=== PATIENT | female | born 1940 | race Caucasian/White ===

== ENCOUNTER 2019-05-27 10:58 | Emergency (ER) | payer OTHER ==
[~2019-05-27] VITALS: Ht 170.2 cm; Wt 86.2 kg
[~2019-05-27 10:58] MED LIST: NAPR220C
[2019-05-27 16:45] VITALS: BP 164/84
== END 2019-05-27 16:48 | disposition home or self-care (01) ==
LOC: ER 10:58
DX: R07.89 Other chest pain (principal); Z90.49 Acquired absence of other specified parts of digestive tract; Z87.891 Personal history of nicotine dependence; Z79.899 Other long term (current) drug therapy; Z88.8 Allergy status to other drugs, medicaments and biological substances; V49.9XXA Car occupant (driver) (passenger) injured in unspecified traffic accident, initial encounter; Y93.89 Activity, other specified; Y92.89 Other specified places as the place of occurrence of the external cause; Y99.8 Other external cause status
CPT/HCPCS: 71046; 93005

== ENCOUNTER 2020-11-16 19:44 | Inpatient (IN) | payer OTHER ==
[~2020-11-16] VITALS: Ht 162.6 cm; Wt 87.1 kg
[2020-11-16] MEDS ORDERED: ONDANSETRON HCL 4 MG/2 ML VIAL IV ONE (21:15)
[2020-11-16] MEDS ORDERED: SODIUM CHLORIDE 0.9% 500 ML IV ONE (21:15)
[2020-11-16] MEDS ORDERED: DexAMETHasone SOD PHOS 10MG/1ML VIAL INJ IV ONE (21:30)
[2020-11-16] MEDS ORDERED: ALBUTEROL SULF 2.5 MG/0.5ML(0.5%) NEB SOLN NEB ONE (21:30)
[2020-11-16 22:15] LABS: Basophils # (auto) 0 10 ^3/uL (0-0.2); Basophils % (auto) 1.1 % (0.0-2.0); Eosinophils # (auto) 0 10 ^3/uL (0-0.8); Eosinophils % (auto) 0.1 % (0.0-7.0); Hematocrit 41.9 % (36.0-46.0); Hemoglobin 14.1 g/dL (12.2-16.2); Lymphocytes # (auto) 0.5 10 ^3/uL (0.4-5.4); Lymphocytes % (auto) 11.8 % (10.0-50.0); Mean Corpuscular Hemoglobin 29.1 pg (28.0-32.0); Mean Corpuscular Hgb Conc. 33.7 g/dL (32.0-36.0); Mean Corpuscular Volume 86.2 fL (80.0-100.0); Monocytes # (auto) 0.5 10 ^3/uL (0-1.3); Monocytes % (auto) 10.7 % (0.0-12.0); Neutrophils # (auto) 3.3 10 ^3/uL (1.6-8.6); Neutrophils % (auto) 76.3 % (37.0-80.0); Nucleated Red Blood Cells % 0.1 %; Red Blood Cells 4.86 10^6/uL (4.0-5.20); Red Cell Distribution Width 14.6 % (11.8-14.3); White Blood Cell 4.3 10^3/uL (4.4-10.8)
[2020-11-16 22:35] LABS: Anion Gap 7 (5-15); Blood Urea Nitrogen 23 mg/dL (7-18); Calcium 8.4 mg/dL (8.5-10.1); Carbon Dioxide 26 mmol/L (21-32); Chloride 103 mmol/L (98-107); Glucose 120 mg/dL (74-106); Magnesium 2.3 mg/dL (1.6-2.6); Potassium 3.7 mmol/L (3.5-5.1); Sodium 136 mmol/L (136-145)
[2020-11-16 22:37] LABS: Lactic Acid w/Reflex 2.2 mmol/L (0.4-2.0)
[2020-11-16 22:43] LABS: Alanine Aminotransferase 76 U/L (13-56); Alkaline Phosphatase 61 U/L (45-117); Aspartate Aminotransferase 67 U/L (15-37); BUN/Creatinine Ratio 13.6; Bilirubin, Total 0.6 mg/dL (0.2-1.0); CRP High Sensitivity 8.96 mg/dL (< 0.3); GFR African American 38 mL/min; GFR Non-African American 31 mL/min; Total Protein 7.9 g/dL (6.4-8.2)
[2020-11-17] MEDS ORDERED: cefTRIAXone 1GM/50ML D5W 50 ML IV ONE
[2020-11-17] MEDS ORDERED: AZITHROMYCIN 500MG/ 250ML 250 ML IV ONE
[2020-11-17] MEDS ORDERED: ACETAMINOPHEN 500 MG TAB PO PRN (01:00)
[2020-11-17] MEDS ORDERED: ALBUTEROL SULF HFA 90MCG INH 200DOSE IN PRN (01:00)
[2020-11-17] MEDS ORDERED: NITROGLYCERIN 0.4 MG SL TAB SL PRN (01:00)
[2020-11-17] MEDS ORDERED: MORPHINE SULFATE INJECTION 2 MG/ML SYRG IV PRN (01:00)
[2020-11-17 09:00] VITALS: BP 131/79
[2020-11-17] MEDS ORDERED: ALBU108A5 INH (09:20)
[2020-11-17] MEDS ORDERED: ATOR20TA50 PO (09:20)
[2020-11-17] MEDS ORDERED: PANTOPRAZOLE 40 MG TAB PO SCH (10:00)
[2020-11-17] MEDS: CHOLECALCIFEROL (VITD3) 2,000 UNIT CAP/TAB PO SCH (10:00)
[2020-11-17] MEDS ORDERED: AZITHROMYCIN 500MG/ 250ML 250 ML IV SCH (10:00)
[2020-11-17] MEDS: ASCORBIC ACID 1,000 MG TAB PO SCH (10:00)
[2020-11-17] MEDS ORDERED: REMDESIVIR PER PHARMACY 0 ML IV SCH (10:00)
[2020-11-17] MEDS: DexAMETHasone SOD PHOS 10MG/1ML VIAL INJ IV SCH (10:00)
[2020-11-17] MEDS: ZINC SULFATE 220mg CAP or TAB PO SCH (10:00)
[2020-11-17] MEDS: ENOXAPARIN SOD 40 MG/0.4 ML SYRINGE SC SCH (10:00)
[2020-11-17] MEDS: SODIUM CHLORIDE 0.9% 1,000 ML IV SCH (10:15)
[2020-11-17] MEDS: ALBUTEROL SULF HFA 90MCG INH 200DOSE IN SCH ×2 (11:42→20:41)
[2020-11-17] MEDS: BUDESONIDE (INHALATION) 180 MCG IH IN SCH ×2 (11:42→20:41)
[2020-11-17 12:12] LABS: Hemoglobin 13.1 g/dL (12.2-16.2); Mean Corpuscular Hemoglobin 28.8 pg (28.0-32.0); Mean Corpuscular Hgb Conc. 33.6 g/dL (32.0-36.0); Mean Corpuscular Volume 85.9 fL (80.0-100.0); Red Blood Cells 4.54 10^6/uL (4.0-5.20); Red Cell Distribution Width 14.5 % (11.8-14.3); White Blood Cell 3.6 10^3/uL (4.4-10.8)
[2020-11-17 12:25] LABS: Basophils % (manual) 0 (0.0-2.0); Blast Cells 0; Eosinophils % (manual) 0 (0-7); Metamyelocytes % 0; Myelocytes % 0; Promyelocytes % 0; Reactive Lymphocytes 0
[2020-11-17 12:27] LABS: Albumin 2.5 g/dL (3.4-5.0); Calcium 8.1 mg/dL (8.5-10.1); Potassium 3.9 mmol/L (3.5-5.1)
[2020-11-17 12:33] LABS: BUN/Creatinine Ratio 14.7; Bilirubin, Total 0.3 mg/dL (0.2-1.0); Total Protein 7.1 g/dL (6.4-8.2)
[2020-11-17 12:40] LABS: Band Neutrophils % (manual) 2; Lymphocytes % (manual) 8 (10.0-50.0); Monocytes % (manual) 4 (0-12)
[2020-11-17 12:57] LABS: Lactic Acid w/Reflex 2.3 mmol/L (0.4-2.0)
[2020-11-17 13:00] VITALS: BP 130/73
[2020-11-17] MEDS ORDERED: REMDESIVIR 200 MG in NS 210ml LOADING DOSE ADULT IV ONE (15:00)
[2020-11-17 17:00] VITALS: BP 133/74
[2020-11-17] MEDS ORDERED: cefTRIAXone 1GM/50ML D5W 50 ML IV SCH (21:00)
[2020-11-17] MEDS: ATORVASTATIN 20 MG TAB PO SCH (21:05)
[2020-11-17 22:00] VITALS: BP 140/63
[2020-11-17 22:16] LABS: Urine Bacteria FEW /hpf (None Seen); Urine Blood Negative /uL (Negative); Urine Mucus FEW (None Seen); Urine Specific Gravity 1.019 (1.001-1.035); Urine WBC 2 /hpf (0 - 5)
[2020-11-17 22:31] LABS: Protein, Urine 89.3 mg/dL (0.0-11.9)
[2020-11-18] MEDS: SODIUM CHLORIDE 0.9% 1,000 ML IV SCH (03:55)
[2020-11-18 05:00] VITALS: BP 134/77
[2020-11-18 06:35] LABS: Basophils # (auto) 0 10 ^3/uL (0-0.2); Basophils % (auto) 0.1 % (0.0-2.0); Eosinophils # (auto) 0 10 ^3/uL (0-0.8); Hematocrit 37.4 % (36.0-46.0); Hemoglobin 12.7 g/dL (12.2-16.2); Lymphocytes # (auto) 0.6 10 ^3/uL (0.4-5.4); Lymphocytes % (auto) 6.1 % (10.0-50.0); Mean Corpuscular Hemoglobin 28.9 pg (28.0-32.0); Mean Corpuscular Hgb Conc. 33.8 g/dL (32.0-36.0); Mean Corpuscular Volume 85.3 fL (80.0-100.0); Monocytes # (auto) 0.7 10 ^3/uL (0-1.3); Monocytes % (auto) 7.7 % (0.0-12.0); Neutrophils # (auto) 7.9 10 ^3/uL (1.6-8.6); Neutrophils % (auto) 86.1 % (37.0-80.0); Red Blood Cells 4.39 10^6/uL (4.0-5.20); Red Cell Distribution Width 14.6 % (11.8-14.3); White Blood Cell 9.1 10^3/uL (4.4-10.8)
[2020-11-18 06:57] LABS: Albumin 2.3 g/dL (3.4-5.0); Calcium 7.9 mg/dL (8.5-10.1)
[2020-11-18 07:00] LABS: BUN/Creatinine Ratio 20.6; Bilirubin, Total 0.4 mg/dL (0.2-1.0); Total Protein 6.6 g/dL (6.4-8.2)
[2020-11-18] MEDS: DexAMETHasone SOD PHOS 10MG/1ML VIAL INJ IV SCH (08:43)
[2020-11-18] MEDS: ZINC SULFATE 220mg CAP or TAB PO SCH (08:44)
[2020-11-18] MEDS: ENOXAPARIN SOD 40 MG/0.4 ML SYRINGE SC SCH (08:44)
[2020-11-18] MEDS: CHOLECALCIFEROL (VITD3) 2,000 UNIT CAP/TAB PO SCH (08:44)
[2020-11-18] MEDS: ASCORBIC ACID 1,000 MG TAB PO SCH (08:44)
[2020-11-18 09:00] VITALS: BP 147/87
[2020-11-18] MEDS ORDERED: POTASSIUM PHOSPHATE 44 MEQ in D5W 5% 250 ML IV ONE (10:30)
[2020-11-18] MEDS: ONDANSETRON HCL 4 MG/2 ML VIAL IV PRN (10:44)
[2020-11-18] MEDS: ALBUTEROL SULF HFA 90MCG INH 200DOSE IN SCH ×3 (11:22→21:22)
[2020-11-18] MEDS: BUDESONIDE (INHALATION) 180 MCG IH IN SCH ×2 (11:22→21:22)
[2020-11-18] MEDS ORDERED: levoFLOXacin 500MG 100 ML IV SCH (12:00)
[2020-11-18 13:00] VITALS: BP 131/70
[2020-11-18] MEDS ORDERED: REMDESIVIR 100mg 100 MG in SODIUM CHL 0.9% 230 ML IV SCH (15:00)
[2020-11-18] MEDS ORDERED: REMDESIVIR PER PHARMACY 0 ML IV SCH (15:30)
[2020-11-18] MEDS ORDERED: REMDESIVIR 200 MG in NS 210ml LOADING DOSE ADULT IV ONE (16:30)
[2020-11-18 17:00] VITALS: BP 113/61
[2020-11-18] MEDS: ATORVASTATIN 20 MG TAB PO SCH (21:45)
[2020-11-18 22:00] VITALS: BP 136/92
[2020-11-19 05:00] VITALS: BP 133/76
[2020-11-19 06:39] LABS: Basophils # (auto) 0 10 ^3/uL (0-0.2); Basophils % (auto) 0.1 % (0.0-2.0); Eosinophils # (auto) 0 10 ^3/uL (0-0.8); Hemoglobin 12.5 g/dL (12.2-16.2); Lymphocytes # (auto) 0.4 10 ^3/uL (0.4-5.4); Lymphocytes % (auto) 3.9 % (10.0-50.0); Mean Corpuscular Hemoglobin 28.9 pg (28.0-32.0); Mean Corpuscular Hgb Conc. 33.8 g/dL (32.0-36.0); Mean Corpuscular Volume 85.5 fL (80.0-100.0); Monocytes # (auto) 0.7 10 ^3/uL (0-1.3); Monocytes % (auto) 6.7 % (0.0-12.0); Neutrophils # (auto) 9.4 10 ^3/uL (1.6-8.6); Neutrophils % (auto) 89.3 % (37.0-80.0); Red Blood Cells 4.32 10^6/uL (4.0-5.20); Red Cell Distribution Width 14.5 % (11.8-14.3); White Blood Cell 10.5 10^3/uL (4.4-10.8)
[2020-11-19 07:23] LABS: Potassium 4.4 mmol/L (3.5-5.1)
[2020-11-19 07:40] LABS: Albumin 2.1 g/dL (3.4-5.0); Bilirubin, Total 0.5 mg/dL (0.2-1.0); Calcium 7.7 mg/dL (8.5-10.1); Total Protein 6.6 g/dL (6.4-8.2)
[2020-11-19 09:00] VITALS: BP 139/85
[2020-11-19] MEDS: ASCORBIC ACID 1,000 MG TAB PO SCH (09:45)
[2020-11-19] MEDS: DexAMETHasone SOD PHOS 10MG/1ML VIAL INJ IV SCH (09:45)
[2020-11-19] MEDS: ZINC SULFATE 220mg CAP or TAB PO SCH (09:45)
[2020-11-19] MEDS: CHOLECALCIFEROL (VITD3) 2,000 UNIT CAP/TAB PO SCH (09:46)
[2020-11-19] MEDS: ENOXAPARIN SOD 40 MG/0.4 ML SYRINGE SC SCH (09:46)
[2020-11-19] MEDS: BUDESONIDE (INHALATION) 180 MCG IH IN SCH ×2 (09:52→21:56)
[2020-11-19] MEDS: ALBUTEROL SULF HFA 90MCG INH 200DOSE IN SCH ×3 (09:52→21:56)
[2020-11-19 13:00] VITALS: BP 124/75
[2020-11-19 14:45] VITALS: BP 139/85
[2020-11-19] MEDS: REMDESIVIR 100mg 100 MG in SODIUM CHL 0.9% 230 ML IV SCH (16:33)
[2020-11-19 17:00] VITALS: BP 149/89
[2020-11-19] MEDS ORDERED: SODIUM PHOSPHATES 20 MEQ in SODIUM CHL 0.9% 100 ML IV ONE (18:00)
[2020-11-19 22:00] VITALS: BP 143/83
[2020-11-19] MEDS: ATORVASTATIN 20 MG TAB PO SCH (22:37)
[2020-11-20 05:00] VITALS: BP 162/89
[2020-11-20 06:37] LABS: Basophils # (auto) 0 10 ^3/uL (0-0.2); Basophils % (auto) 0.1 % (0.0-2.0); Eosinophils # (auto) 0 10 ^3/uL (0-0.8); Hematocrit 37.9 % (36.0-46.0); Hemoglobin 12.8 g/dL (12.2-16.2); Lymphocytes # (auto) 0.3 10 ^3/uL (0.4-5.4); Lymphocytes % (auto) 4.6 % (10.0-50.0); Mean Corpuscular Hemoglobin 28.8 pg (28.0-32.0); Mean Corpuscular Hgb Conc. 33.8 g/dL (32.0-36.0); Mean Corpuscular Volume 85.2 fL (80.0-100.0); Monocytes # (auto) 0.6 10 ^3/uL (0-1.3); Monocytes % (auto) 8.3 % (0.0-12.0); Neutrophils # (auto) 6.5 10 ^3/uL (1.6-8.6); Red Blood Cells 4.45 10^6/uL (4.0-5.20); Red Cell Distribution Width 14.6 % (11.8-14.3); White Blood Cell 7.4 10^3/uL (4.4-10.8)
[2020-11-20 07:16] LABS: Potassium 4.2 mmol/L (3.5-5.1)
[2020-11-20 07:31] LABS: Albumin 2.1 g/dL (3.4-5.0); BUN/Creatinine Ratio 32.4; Bilirubin, Total 0.6 mg/dL (0.2-1.0); CRP High Sensitivity 9.67 mg/dL (< 0.3); Calcium 8.1 mg/dL (8.5-10.1); Phosphorus 2.4 mg/dL (2.5-4.90); Total Protein 6.3 g/dL (6.4-8.2)
[2020-11-20] MEDS: ALBUTEROL SULF HFA 90MCG INH 200DOSE IN SCH ×3 (07:53→18:47)
[2020-11-20] MEDS: BUDESONIDE (INHALATION) 180 MCG IH IN SCH ×2 (07:53→18:46)
[2020-11-20] MEDS: ASCORBIC ACID 1,000 MG TAB PO SCH (09:55)
[2020-11-20] MEDS: CHOLECALCIFEROL (VITD3) 2,000 UNIT CAP/TAB PO SCH (09:55)
[2020-11-20] MEDS: ENOXAPARIN SOD 40 MG/0.4 ML SYRINGE SC SCH (09:55)
[2020-11-20] MEDS: ZINC SULFATE 220mg CAP or TAB PO SCH (09:55)
[2020-11-20] MEDS: DexAMETHasone SOD PHOS 10MG/1ML VIAL INJ IV SCH (09:55)
[2020-11-20 13:00] VITALS: BP 150/91
[2020-11-20] MEDS ORDERED: LOPERAMIDE HCL 2 MG CAP PO ONE (15:30)
[2020-11-20] MEDS ORDERED: LOPERAMIDE HCL 2 MG CAP PO PRN (15:30)
[2020-11-20] MEDS: REMDESIVIR 100mg 100 MG in SODIUM CHL 0.9% 230 ML IV SCH (16:28)
[2020-11-20 16:48] VITALS: BP 152/87
[2020-11-20 22:00] VITALS: BP 143/88
[2020-11-20] MEDS: ATORVASTATIN 20 MG TAB PO SCH (22:00)
[2020-11-21 05:00] VITALS: BP 143/73
[2020-11-21 05:08] LABS: Basophils # (auto) 0 10 ^3/uL (0-0.2); Basophils % (auto) 0.1 % (0.0-2.0); Eosinophils # (auto) 0 10 ^3/uL (0-0.8); Hematocrit 37.7 % (36.0-46.0); Hemoglobin 12.3 g/dL (12.2-16.2); Lymphocytes # (auto) 0.3 10 ^3/uL (0.4-5.4); Lymphocytes % (auto) 3.9 % (10.0-50.0); Mean Corpuscular Hemoglobin 28.2 pg (28.0-32.0); Mean Corpuscular Hgb Conc. 32.7 g/dL (32.0-36.0); Mean Corpuscular Volume 86.4 fL (80.0-100.0); Monocytes # (auto) 0.7 10 ^3/uL (0-1.3); Monocytes % (auto) 9.7 % (0.0-12.0); Neutrophils # (auto) 6.5 10 ^3/uL (1.6-8.6); Neutrophils % (auto) 86.3 % (37.0-80.0); Red Blood Cells 4.37 10^6/uL (4.0-5.20); Red Cell Distribution Width 14.8 % (11.8-14.3); White Blood Cell 7.6 10^3/uL (4.4-10.8)
[2020-11-21 05:28] LABS: Potassium 4.3 mmol/L (3.5-5.1)
[2020-11-21 05:41] LABS: Bilirubin, Total 0.7 mg/dL (0.2-1.0); Total Protein 5.8 g/dL (6.4-8.2)
[2020-11-21] MEDS: BUDESONIDE (INHALATION) 180 MCG IH IN SCH ×2 (06:10→22:10)
[2020-11-21] MEDS: ALBUTEROL SULF HFA 90MCG INH 200DOSE IN SCH ×3 (06:10→22:10)
[2020-11-21 08:00] VITALS: BP 147/92
[2020-11-21] MEDS: DexAMETHasone SOD PHOS 10MG/1ML VIAL INJ IV SCH (10:18)
[2020-11-21] MEDS: ZINC SULFATE 220mg CAP or TAB PO SCH (10:18)
[2020-11-21] MEDS: ASCORBIC ACID 1,000 MG TAB PO SCH (10:19)
[2020-11-21] MEDS: CHOLECALCIFEROL (VITD3) 2,000 UNIT CAP/TAB PO SCH (10:20)
[2020-11-21] MEDS: ENOXAPARIN SOD 40 MG/0.4 ML SYRINGE SC SCH (10:20)
[2020-11-21 13:00] VITALS: BP 141/80
[2020-11-21 16:00] VITALS: BP 157/95
[2020-11-21] MEDS: REMDESIVIR 100mg 100 MG in SODIUM CHL 0.9% 230 ML IV SCH (17:16)
[2020-11-21 22:00] VITALS: BP 155/93
[2020-11-21] MEDS: ATORVASTATIN 20 MG TAB PO SCH (22:35)
[2020-11-21] MEDS: FREE WATER GT SCH (22:45)
[2020-11-22 05:00] VITALS: BP 138/90
[2020-11-22 05:48] LABS: Calcium 8.7 mg/dL (8.5-10.1); Potassium 4.5 mmol/L (3.5-5.1)
[2020-11-22] MEDS: FREE WATER GT SCH ×3 (05:50→11:51)
[2020-11-22 05:51] LABS: BUN/Creatinine Ratio 36.1; Bilirubin, Total 0.8 mg/dL (0.2-1.0); Total Protein 6.1 g/dL (6.4-8.2)
[2020-11-22] MEDS: BUDESONIDE (INHALATION) 180 MCG IH IN SCH (07:39)
[2020-11-22] MEDS: ALBUTEROL SULF HFA 90MCG INH 200DOSE IN SCH ×2 (07:39→21:03)
[2020-11-22 08:00] VITALS: BP 141/55
[2020-11-22] MEDS: ZINC SULFATE 220mg CAP or TAB PO SCH (09:38)
[2020-11-22] MEDS: ASCORBIC ACID 1,000 MG TAB PO SCH (09:38)
[2020-11-22] MEDS: CHOLECALCIFEROL (VITD3) 2,000 UNIT CAP/TAB PO SCH (09:38)
[2020-11-22] MEDS: DexAMETHasone SOD PHOS 10MG/1ML VIAL INJ IV SCH (09:38)
[2020-11-22] MEDS: ENOXAPARIN SOD 40 MG/0.4 ML SYRINGE SC SCH (09:39)
[2020-11-22 12:00] VITALS: BP 142/92
[2020-11-22] MEDS: REMDESIVIR 100mg 100 MG in SODIUM CHL 0.9% 230 ML IV SCH (14:37)
[2020-11-22 16:00] VITALS: BP 154/82
[2020-11-22 16:21] VITALS: BP 142/92
[2020-11-22] MEDS: ATORVASTATIN 20 MG TAB PO SCH (21:39)
[2020-11-22 22:00] VITALS: BP 149/85
[2020-11-23 05:00] VITALS: BP 142/72
[2020-11-23 05:36] LABS: Basophils # (auto) 0 10 ^3/uL (0-0.2); Basophils % (auto) 0.1 % (0.0-2.0); Eosinophils # (auto) 0 10 ^3/uL (0-0.8); Hematocrit 36.5 % (36.0-46.0); Hemoglobin 12.2 g/dL (12.2-16.2); Lymphocytes # (auto) 0.4 10 ^3/uL (0.4-5.4); Lymphocytes % (auto) 4.1 % (10.0-50.0); Mean Corpuscular Hemoglobin 28.6 pg (28.0-32.0); Mean Corpuscular Hgb Conc. 33.5 g/dL (32.0-36.0); Mean Corpuscular Volume 85.4 fL (80.0-100.0); Monocytes # (auto) 0.7 10 ^3/uL (0-1.3); Monocytes % (auto) 7.4 % (0.0-12.0); Neutrophils # (auto) 8.1 10 ^3/uL (1.6-8.6); Neutrophils % (auto) 88.4 % (37.0-80.0); Nucleated Red Blood Cells % 0.1 %; Red Blood Cells 4.27 10^6/uL (4.0-5.20); Red Cell Distribution Width 14.7 % (11.8-14.3); White Blood Cell 9.2 10^3/uL (4.4-10.8)
[2020-11-23 05:53] LABS: BUN/Creatinine Ratio 43.5; Calcium 8.2 mg/dL (8.5-10.1); Potassium 4.3 mmol/L (3.5-5.1)
[2020-11-23 06:02] LABS: CRP High Sensitivity 2.43 mg/dL (< 0.3)
[2020-11-23] MEDS: BUDESONIDE (INHALATION) 180 MCG IH IN SCH ×2 (06:27→18:55)
[2020-11-23] MEDS: ALBUTEROL SULF HFA 90MCG INH 200DOSE IN SCH ×3 (06:27→18:55)
[2020-11-23 09:00] VITALS: BP 140/61
[2020-11-23] MEDS: DexAMETHasone SOD PHOS 10MG/1ML VIAL INJ IV SCH (09:00)
[2020-11-23] MEDS: ZINC SULFATE 220mg CAP or TAB PO SCH (09:00)
[2020-11-23] MEDS: CHOLECALCIFEROL (VITD3) 2,000 UNIT CAP/TAB PO SCH (09:01)
[2020-11-23] MEDS: ENOXAPARIN SOD 40 MG/0.4 ML SYRINGE SC SCH (09:01)
[2020-11-23] MEDS: ASCORBIC ACID 1,000 MG TAB PO SCH (09:01)
[2020-11-23 15:38] VITALS: BP 124/59
[2020-11-23 17:20] VITALS: BP 132/63
[2020-11-23] MEDS: ATORVASTATIN 20 MG TAB PO SCH (22:08)
[2020-11-24 05:00] VITALS: BP 121/65
[2020-11-24 06:43] LABS: Basophils # (auto) 0 10 ^3/uL (0-0.2); Basophils % (auto) 0.1 % (0.0-2.0); Eosinophils # (auto) 0.2 10 ^3/uL (0-0.8); Eosinophils % (auto) 1.5 % (0.0-7.0); Hematocrit 36.8 % (36.0-46.0); Hemoglobin 12.5 g/dL (12.2-16.2); Lymphocytes # (auto) 0.5 10 ^3/uL (0.4-5.4); Mean Corpuscular Hemoglobin 28.8 pg (28.0-32.0); Mean Corpuscular Volume 84.8 fL (80.0-100.0); Monocytes # (auto) 0.3 10 ^3/uL (0-1.3); Monocytes % (auto) 2.8 % (0.0-12.0); Neutrophils # (auto) 9.4 10 ^3/uL (1.6-8.6); Neutrophils % (auto) 90.6 % (37.0-80.0); Red Blood Cells 4.34 10^6/uL (4.0-5.20); Red Cell Distribution Width 14.6 % (11.8-14.3); White Blood Cell 10.4 10^3/uL (4.4-10.8)
[2020-11-24 07:03] LABS: Potassium 3.9 mmol/L (3.5-5.1)
[2020-11-24 07:39] LABS: BUN/Creatinine Ratio 41.7; CRP High Sensitivity 3.94 mg/dL (< 0.3); Calcium 8.3 mg/dL (8.5-10.1)
[2020-11-24 09:00] VITALS: BP 99/64
[2020-11-24] MEDS: DexAMETHasone SOD PHOS 10MG/1ML VIAL INJ IV SCH (09:45)
[2020-11-24] MEDS: ZINC SULFATE 220mg CAP or TAB PO SCH (09:45)
[2020-11-24] MEDS: ASCORBIC ACID 1,000 MG TAB PO SCH (09:45)
[2020-11-24] MEDS: CHOLECALCIFEROL (VITD3) 2,000 UNIT CAP/TAB PO SCH (09:45)
[2020-11-24] MEDS: ENOXAPARIN SOD 40 MG/0.4 ML SYRINGE SC SCH (09:46)
[2020-11-24 12:14] VITALS: BP 144/79
[2020-11-24 13:00] VITALS: BP 112/63
[2020-11-24] MEDS: ALBUTEROL SULF HFA 90MCG INH 200DOSE IN SCH ×3 (14:00→18:46)
[2020-11-24] MEDS: BUDESONIDE (INHALATION) 180 MCG IH IN SCH ×2 (14:07→18:46)
[2020-11-24 17:00] VITALS: BP 109/60
[2020-11-24] MEDS: ATORVASTATIN 20 MG TAB PO SCH (20:53)
[2020-11-24 22:00] VITALS: BP 103/60
[2020-11-25 05:00] VITALS: BP 117/64
[2020-11-25 05:46] LABS: Hematocrit 37.8 % (36.0-46.0); Hemoglobin 12.6 g/dL (12.2-16.2); Mean Corpuscular Hgb Conc. 33.2 g/dL (32.0-36.0); Mean Corpuscular Volume 87.2 fL (80.0-100.0); Red Blood Cells 4.34 10^6/uL (4.0-5.20); Red Cell Distribution Width 14.3 % (11.8-14.3)
[2020-11-25 06:00] LABS: Band Neutrophils % (manual) 0; Basophils % (manual) 0 (0.0-2.0); Blast Cells 0; Eosinophils % (manual) 0 (0-7); Metamyelocytes % 0; Myelocytes % 0; Promyelocytes % 0; Reactive Lymphocytes 0
[2020-11-25 06:06] LABS: Potassium 4.2 mmol/L (3.5-5.1)
[2020-11-25 06:25] LABS: BUN/Creatinine Ratio 47.8; CRP High Sensitivity 5.45 mg/dL (< 0.3); Calcium 8.3 mg/dL (8.5-10.1)
[2020-11-25] MEDS: ALBUTEROL SULF HFA 90MCG INH 200DOSE IN SCH ×2 (07:22→21:10)
[2020-11-25] MEDS: BUDESONIDE (INHALATION) 180 MCG IH IN SCH ×2 (07:23→21:09)
[2020-11-25 07:27] LABS: Lymphocytes % (manual) 6 (10.0-50.0); Monocytes % (manual) 4 (0-12)
[2020-11-25 09:00] VITALS: BP 135/65
[2020-11-25] MEDS: ENOXAPARIN SOD 40 MG/0.4 ML SYRINGE SC SCH (10:30)
[2020-11-25] MEDS: ZINC SULFATE 220mg CAP or TAB PO SCH (10:30)
[2020-11-25] MEDS: DexAMETHasone SOD PHOS 10MG/1ML VIAL INJ IV SCH (10:30)
[2020-11-25] MEDS: CHOLECALCIFEROL (VITD3) 2,000 UNIT CAP/TAB PO SCH (10:30)
[2020-11-25] MEDS: ASCORBIC ACID 1,000 MG TAB PO SCH (10:30)
[2020-11-25 13:00] VITALS: BP 102/48
[2020-11-25 17:00] VITALS: BP 122/66
[2020-11-25] MEDS: ATORVASTATIN 20 MG TAB PO SCH (21:47)
[2020-11-25 22:00] VITALS: BP 129/57
[2020-11-26 04:57] VITALS: BP 159/77
[2020-11-26 07:01] LABS: Basophils # (auto) 0 10 ^3/uL (0-0.2); Basophils % (auto) 0.2 % (0.0-2.0); Eosinophils # (auto) 0 10 ^3/uL (0-0.8); Eosinophils % (auto) 0.2 % (0.0-7.0); Hematocrit 38.1 % (36.0-46.0); Lymphocytes # (auto) 0.5 10 ^3/uL (0.4-5.4); Lymphocytes % (auto) 4.6 % (10.0-50.0); Mean Corpuscular Hemoglobin 29.3 pg (28.0-32.0); Mean Corpuscular Hgb Conc. 34.1 g/dL (32.0-36.0); Mean Corpuscular Volume 85.8 fL (80.0-100.0); Monocytes # (auto) 0.6 10 ^3/uL (0-1.3); Monocytes % (auto) 6.2 % (0.0-12.0); Neutrophils # (auto) 8.9 10 ^3/uL (1.6-8.6); Neutrophils % (auto) 88.8 % (37.0-80.0); Red Blood Cells 4.44 10^6/uL (4.0-5.20); Red Cell Distribution Width 14.5 % (11.8-14.3); White Blood Cell 10.1 10^3/uL (4.4-10.8)
[2020-11-26] MEDS: ALBUTEROL SULF HFA 90MCG INH 200DOSE IN SCH ×3 (07:12→21:48)
[2020-11-26] MEDS: BUDESONIDE (INHALATION) 180 MCG IH IN SCH ×2 (07:12→21:49)
[2020-11-26 07:15] LABS: Calcium 8.5 mg/dL (8.5-10.1); Potassium 4.5 mmol/L (3.5-5.1)
[2020-11-26 07:32] LABS: BUN/Creatinine Ratio 35.6; CRP High Sensitivity 2.69 mg/dL (< 0.3)
[2020-11-26] MEDS: ASCORBIC ACID 1,000 MG TAB PO SCH (08:30)
[2020-11-26] MEDS: ENOXAPARIN SOD 40 MG/0.4 ML SYRINGE SC SCH (08:30)
[2020-11-26] MEDS: CHOLECALCIFEROL (VITD3) 2,000 UNIT CAP/TAB PO SCH (08:30)
[2020-11-26] MEDS: DexAMETHasone SOD PHOS 10MG/1ML VIAL INJ IV SCH (08:30)
[2020-11-26] MEDS: ZINC SULFATE 220mg CAP or TAB PO SCH (08:30)
[2020-11-26 09:00] VITALS: BP 144/78
[2020-11-26 13:00] VITALS: BP 127/68
[2020-11-26 16:44] VITALS: BP 123/74
[2020-11-26 20:55] VITALS: BP 94/50
[2020-11-26] MEDS: ATORVASTATIN 20 MG TAB PO SCH (21:49)
[2020-11-27 04:24] VITALS: BP 114/64
[2020-11-27] MEDS: ALBUTEROL SULF HFA 90MCG INH 200DOSE IN SCH ×3 (06:40→22:23)
[2020-11-27] MEDS: BUDESONIDE (INHALATION) 180 MCG IH IN SCH ×2 (06:41→22:23)
[2020-11-27 07:24] LABS: Basophils # (auto) 0 10 ^3/uL (0-0.2); Basophils % (auto) 0.2 % (0.0-2.0); Eosinophils # (auto) 0 10 ^3/uL (0-0.8); Eosinophils % (auto) 0.1 % (0.0-7.0); Hematocrit 40.4 % (36.0-46.0); Hemoglobin 13.4 g/dL (12.2-16.2); Lymphocytes # (auto) 0.7 10 ^3/uL (0.4-5.4); Lymphocytes % (auto) 5.3 % (10.0-50.0); Mean Corpuscular Hemoglobin 28.6 pg (28.0-32.0); Mean Corpuscular Hgb Conc. 33.1 g/dL (32.0-36.0); Mean Corpuscular Volume 86.4 fL (80.0-100.0); Monocytes # (auto) 0.9 10 ^3/uL (0-1.3); Monocytes % (auto) 7.1 % (0.0-12.0); Neutrophils # (auto) 10.7 10 ^3/uL (1.6-8.6); Neutrophils % (auto) 87.3 % (37.0-80.0); Nucleated Red Blood Cells % 0.1 %; Red Blood Cells 4.68 10^6/uL (4.0-5.20); Red Cell Distribution Width 14.6 % (11.8-14.3); White Blood Cell 12.3 10^3/uL (4.4-10.8)
[2020-11-27 08:48] LABS: BUN/Creatinine Ratio 31.4; Calcium 8.7 mg/dL (8.5-10.1); Potassium 4.8 mmol/L (3.5-5.1)
[2020-11-27 09:00] VITALS: BP 122/69
[2020-11-27] MEDS: CHOLECALCIFEROL (VITD3) 2,000 UNIT CAP/TAB PO SCH (09:26)
[2020-11-27] MEDS: ZINC SULFATE 220mg CAP or TAB PO SCH (09:26)
[2020-11-27] MEDS: DexAMETHasone SOD PHOS 10MG/1ML VIAL INJ IV SCH (09:26)
[2020-11-27] MEDS: ASCORBIC ACID 1,000 MG TAB PO SCH (09:26)
[2020-11-27] MEDS: ENOXAPARIN SOD 40 MG/0.4 ML SYRINGE SC SCH (09:27)
[2020-11-27 13:00] VITALS: BP 102/68
[2020-11-27] MEDS ORDERED: DexAMETHasone 4 MG TAB PO SCH (13:30)
[2020-11-27 17:00] VITALS: BP 103/75
[2020-11-27] MEDS: ATORVASTATIN 20 MG TAB PO SCH (21:52)
[2020-11-27 22:00] VITALS: BP 104/54
[2020-11-28 04:55] VITALS: BP 110/59
[2020-11-28 07:02] LABS: Basophils # (auto) 0 10 ^3/uL (0-0.2); Basophils % (auto) 0.1 % (0.0-2.0); Eosinophils # (auto) 0.2 10 ^3/uL (0-0.8); Hematocrit 37.4 % (36.0-46.0); Hemoglobin 12.4 g/dL (12.2-16.2); Lymphocytes # (auto) 0.8 10 ^3/uL (0.4-5.4); Mean Corpuscular Hemoglobin 28.7 pg (28.0-32.0); Mean Corpuscular Volume 86.8 fL (80.0-100.0); Monocytes # (auto) 0.9 10 ^3/uL (0-1.3); Monocytes % (auto) 9.2 % (0.0-12.0); Neutrophils % (auto) 80.7 % (37.0-80.0); Red Blood Cells 4.31 10^6/uL (4.0-5.20); Red Cell Distribution Width 14.7 % (11.8-14.3); White Blood Cell 9.9 10^3/uL (4.4-10.8)
[2020-11-28] MEDS: BUDESONIDE (INHALATION) 180 MCG IH IN SCH ×2 (07:02→22:31)
[2020-11-28] MEDS: ALBUTEROL SULF HFA 90MCG INH 200DOSE IN SCH ×3 (07:02→22:31)
[2020-11-28 07:47] LABS: Calcium 7.9 mg/dL (8.5-10.1); Potassium 4.2 mmol/L (3.5-5.1)
[2020-11-28 07:50] LABS: BUN/Creatinine Ratio 30.9
[2020-11-28 09:00] VITALS: BP 101/51
[2020-11-28] MEDS ORDERED: DexAMETHasone 4 MG TAB PO SCH (10:00)
[2020-11-28] MEDS: ASCORBIC ACID 1,000 MG TAB PO SCH (10:07)
[2020-11-28] MEDS: ENOXAPARIN SOD 40 MG/0.4 ML SYRINGE SC SCH (10:08)
[2020-11-28] MEDS: ZINC SULFATE 220mg CAP or TAB PO SCH (10:08)
[2020-11-28] MEDS: CHOLECALCIFEROL (VITD3) 2,000 UNIT CAP/TAB PO SCH (10:08)
[2020-11-28] MEDS ORDERED: IOHEXOL 350 MG/ML 100ML IJ ONE (13:30)
[2020-11-28 14:00] VITALS: BP 109/64
[2020-11-28 17:08] VITALS: BP 107/68
[2020-11-28] MEDS: ATORVASTATIN 20 MG TAB PO SCH (21:28)
[2020-11-28 22:00] VITALS: BP 100/44
[2020-11-29 05:00] VITALS: BP 106/62
[2020-11-29] MEDS: ALBUTEROL SULF HFA 90MCG INH 200DOSE IN SCH ×2 (06:37→21:03)
[2020-11-29] MEDS: BUDESONIDE (INHALATION) 180 MCG IH IN SCH ×2 (06:38→21:03)
[2020-11-29 06:56] LABS: Basophils # (auto) 0 10 ^3/uL (0-0.2); Basophils % (auto) 0.3 % (0.0-2.0); Eosinophils # (auto) 0.1 10 ^3/uL (0-0.8); Eosinophils % (auto) 1.9 % (0.0-7.0); Hematocrit 36.9 % (36.0-46.0); Lymphocytes # (auto) 0.7 10 ^3/uL (0.4-5.4); Lymphocytes % (auto) 9.7 % (10.0-50.0); Mean Corpuscular Hgb Conc. 32.5 g/dL (32.0-36.0); Mean Corpuscular Volume 86.2 fL (80.0-100.0); Monocytes # (auto) 0.7 10 ^3/uL (0-1.3); Monocytes % (auto) 10.2 % (0.0-12.0); Neutrophils # (auto) 5.7 10 ^3/uL (1.6-8.6); Neutrophils % (auto) 77.9 % (37.0-80.0); Nucleated Red Blood Cells % 0.1 %; Red Blood Cells 4.29 10^6/uL (4.0-5.20); Red Cell Distribution Width 14.6 % (11.8-14.3); White Blood Cell 7.3 10^3/uL (4.4-10.8)
[2020-11-29 07:12] LABS: BUN/Creatinine Ratio 22.1; Calcium 8.4 mg/dL (8.5-10.1); Potassium 4.3 mmol/L (3.5-5.1)
[2020-11-29 08:34] VITALS: BP 119/61
[2020-11-29 13:00] VITALS: BP 115/70
[2020-11-29] MEDS: ZINC SULFATE 220mg CAP or TAB PO SCH (14:09)
[2020-11-29] MEDS: ASCORBIC ACID 1,000 MG TAB PO SCH (14:10)
[2020-11-29] MEDS: CHOLECALCIFEROL (VITD3) 2,000 UNIT CAP/TAB PO SCH (14:10)
[2020-11-29 16:53] VITALS: BP 109/58
[2020-11-29 22:00] VITALS: BP 118/64
[2020-11-29] MEDS: ATORVASTATIN 20 MG TAB PO SCH (22:37)
[2020-11-29] MEDS: ONDANSETRON HCL 4 MG/2 ML VIAL IV PRN (22:37)
[2020-11-30 05:00] VITALS: BP 114/63
[2020-11-30] MEDS: ONDANSETRON HCL 4 MG/2 ML VIAL IV PRN (05:20)
[2020-11-30] MEDS: ALBUTEROL SULF HFA 90MCG INH 200DOSE IN SCH ×2 (06:00→20:38)
[2020-11-30 06:35] LABS: Potassium 4.7 mmol/L (3.5-5.1)
[2020-11-30] MEDS: BUDESONIDE (INHALATION) 180 MCG IH IN SCH ×2 (06:45→20:38)
[2020-11-30 06:49] LABS: Calcium 8.7 mg/dL (8.5-10.1)
[2020-11-30 09:00] VITALS: BP 96/60
[2020-11-30] MEDS: ZINC SULFATE 220mg CAP or TAB PO SCH (09:04)
[2020-11-30] MEDS: ASCORBIC ACID 1,000 MG TAB PO SCH (09:04)
[2020-11-30] MEDS: CHOLECALCIFEROL (VITD3) 2,000 UNIT CAP/TAB PO SCH (09:05)
[2020-11-30] MEDS: ENOXAPARIN SOD 40 MG/0.4 ML SYRINGE SC SCH (09:05)
[2020-11-30 13:27] VITALS: BP 110/72
[2020-11-30 17:00] VITALS: BP 120/77
[2020-11-30 22:00] VITALS: BP 112/64
[2020-11-30] MEDS: ATORVASTATIN 20 MG TAB PO SCH (22:33)
[2020-12-01 05:30] VITALS: BP 125/51
[2020-12-01 06:41] LABS: Calcium 8.5 mg/dL (8.5-10.1); Potassium 4.5 mmol/L (3.5-5.1)
[2020-12-01 06:44] LABS: BUN/Creatinine Ratio 24.7
[2020-12-01] MEDS: ALBUTEROL SULF HFA 90MCG INH 200DOSE IN SCH (07:19)
[2020-12-01] MEDS: BUDESONIDE (INHALATION) 180 MCG IH IN SCH (07:20)
[2020-12-01 09:00] VITALS: BP 110/64
[2020-12-01] MEDS: ZINC SULFATE 220mg CAP or TAB PO SCH (09:41)
[2020-12-01] MEDS: CHOLECALCIFEROL (VITD3) 2,000 UNIT CAP/TAB PO SCH (09:41)
[2020-12-01] MEDS: ASCORBIC ACID 1,000 MG TAB PO SCH (09:41)
[2020-12-01 13:00] VITALS: BP 122/68
[2020-12-01] MEDS: ENOXAPARIN SOD 40 MG/0.4 ML SYRINGE SC SCH (14:15)
[2020-12-01 14:39] VITALS: BP 108/67
[2020-12-01 17:00] VITALS: BP 103/51
== END 2020-12-01 19:45 | disposition home health service (06) | DRG 177 ==
LOC: ER 19:48 → TELE 11-17 01:03 → TELE-EAST 11-17 08:19 → TELE-CENTR 11-19 16:26 → TELE-E-ADS 11-23 18:54 → TELE-EAST 11-30 23:43
PROVIDERS: ADMIT Nurse Practitioner; ATTEND Internal Medicine
PROC: XW033E5 Introduction of Remdesivir Anti-infective into Peripheral Vein, Percutaneous Approach, New Technology Group 5 (ICD-10-PCS; principal; 2020-11-17)
PROC: 5A0935A Assistance with Respiratory Ventilation, Less than 24 Consecutive Hours, High Flow/Velocity Cannula (ICD-10-PCS; 2020-11-19)
DX: U07.1 COVID-19 (principal); J96.01 Acute respiratory failure with hypoxia; J12.82 Pneumonia due to coronavirus disease 2019; N17.0 Acute kidney failure with tubular necrosis; J98.11 Atelectasis; J44.0 Chronic obstructive pulmonary disease with (acute) lower respiratory infection; E88.09 Other disorders of plasma-protein metabolism, not elsewhere classified; N18.30 Chronic kidney disease, stage 3 unspecified; Z66 Do not resuscitate; E78.5 Hyperlipidemia, unspecified; E66.01 Morbid (severe) obesity due to excess calories; Z68.33 Body mass index [BMI] 33.0-33.9, adult; Z82.49 Family history of ischemic heart disease and other diseases of the circulatory system
CPT/HCPCS: 36415; 36600; 71045; 71275; 76775; 80048; 80053; 81001; 82570; 82728; 82805; 83605; 83615; 83735; 83880; 84100; 84156; 84300; 84484; 85007; 85025; 85027; 85048; 85379; 86141; 87040; 87045; 87426; 87427; 87493; 93005; 93926; 93970; 94640; 96365; 96366; 96367; 96375; 97116; 97530; 99291; G0378; J0696; J1100; J1956; J2405; J7060